=== PATIENT | male | born 1960 | race Caucasian/White ===

== ENCOUNTER → 2019-10-01 10:49 | Outpatient (BNVA) | payer OTHER, SELFPAY | PROVIDERS: PCP Nurse Practitioner; Visit Provider Internal Medicine Rheumatology | DX: Z79.899 Other long term (current) drug therapy (principal); L40.50 Arthropathic psoriasis, unspecified; Z11.59 Encounter for screening for other viral diseases | CPT/HCPCS: 80076; 82306; 82565; 84550; 85025; 85651; 86140; 86431; 86704; 86803; 87340 ==

== ENCOUNTER 2019-10-15 12:13 | Outpatient (CLI) | payer OTHER, SELFPAY ==
--- NOTE | 2019-10-15 12:18 | XR_ITS ---
WS: [id number] RIGHT FOOT: 3 VIEW(S) TECHNIQUE: AP, oblique and lateral. HISTORY: Psoriatic arthritis COMPARISON: None available. No acute fracture or dislocation. Normal tarsal/metatarsal alignment. No periostitis or edema. XR/XR foot RT min 3V* [id number] IMPRESSION: No evidence for psoriatic arthritis radiographically.
--- NOTE | 2019-10-15 12:18 | XR_ITS ---
WS: [id number] LEFT HAND: 3 VIEW(S) TECHNIQUE: PA, oblique and lateral. HISTORY: Psoriatic arthritis. COMPARISON: None available. Very mild narrowing of the interphalangeal joints. No edema or soft tissue swelling. Erosive changes involving the ulnar styloid with adjacent soft tissue edema. Additional early cortica l changes involving the first metacarpal head. XR/XR hand LT min 3V* [id number] IMPRESSION: 1. Erosive changes and edema at the ulnar styloid. This can be seen with rheum atoid arthritis or psoriatic arthritis. 2. No periostitis.
--- NOTE | 2019-10-15 12:18 | XR_ITS ---
WS: [id number] LEFT FOOT: 3 VIEW(S) TECHNIQUE: AP, oblique and lateral. HISTORY: Psoriatic arthritis. COMPARISON: None available. No acute fracture or dislocation. Normal tarsal/metatarsal alignment. No periostitis or significant soft tissue edema. No erosions. XR/XR foot LT min 3V* [id number] IMPRESSION: No evidence for psoriatic arthritis radiographically.
--- NOTE | 2019-10-15 12:18 | XR_ITS ---
WS: [id number] CHEST 2 VIEWS HISTORY: Psoriatic arthritis. COMPARISON: None available. Lungs: Clear with no abnormality. No pleural effusion or pneumothorax. Cardiac size: Normal. Mediastinum/Aorta: Normal mediastinum. Bones: Normal. XR/XR chest 2V* [id number] IMPRESSION: Normal chest.
--- NOTE | 2019-10-15 12:18 | XR_ITS ---
WS: [id number] RIGHT HAND: 3 VIEW(S) TECHNIQUE: PA, oblique and lateral. HISTORY: Psoriatic arthritis. COMPARISON: None available. Very minimal narrowing of the interphalangeal joints. No periostitis or erosions or telescoping of th e fingers. No subluxation. No soft tissue edema. XR/XR hand RT min 3V* [id number] IMPRESSION: Very mild interphalangeal joint space narrowing. Can be seen with early osteoar thritis or psoriatic arthritis.
== END 2019-10-15 12:14 | disposition home or self-care (01) ==
PROVIDERS: PCP Nurse Practitioner; Visit Provider Internal Medicine Rheumatology
DX: L40.50 Arthropathic psoriasis, unspecified (principal); R60.9 Edema, unspecified
CPT/HCPCS: 71046; 73130; 73630

== ENCOUNTER → 2020-03-10 09:40 | Outpatient (BNVA) | payer OTHER, SELFPAY | PROVIDERS: PCP Nurse Practitioner; Visit Provider Internal Medicine Rheumatology | DX: L40.50 Arthropathic psoriasis, unspecified (principal); Z71.89 Other specified counseling; Z79.899 Other long term (current) drug therapy | CPT/HCPCS: 80076; 82565; 85025; 85651; 86140; 86480 ==

== ENCOUNTER 2020-06-01 09:18 | Outpatient (CLI) | payer OTHER, SELFPAY ==
--- NOTE | 2020-06-01 09:23 | XR_ITS ---
WS: [id number] HAND LEFT TECHNIQUE: 3 views of the left hand CLINICAL INFORMATION: S60.559A - Superficial foreign body of unspecified hand, initial encounter COMPARISON: October 15, 2019 FINDINGS: Small calcifications second digit along the radial aspect of the mid phalanx. This is uncha nged since October 15, 2019. No visualized foreign bodies. Normal metacarpals. Normal MCP joint. Metacarpal heads are normal in appearance. Normal PIP and DIP j oints. No evidence of acute fracture or dislocation. Radiocarpal joint: Mild narrowing Carpal bones: Normal. XR/XR hand LT min 3V* [id number] IMPRESSION: 1. Small radiopaque fragments in the second digit soft tissues along the radia l aspect of the mid phalanx. This is unchanged since October 15, 2019 2. No visualized foreign bodies.
== END 2020-06-01 09:19 | disposition home or self-care (01) ==
LOC: RADWPI 09:22
PROVIDERS: PCP Nurse Practitioner; Visit Provider Nurse Practitioner Family
DX: S60.552A Superficial foreign body of left hand, initial encounter (principal); X58.XXXA Exposure to other specified factors, initial encounter
CPT/HCPCS: 73130

== ENCOUNTER → 2020-07-24 14:02 | Outpatient (BNVA) | payer OTHER, SELFPAY | PROVIDERS: PCP Nurse Practitioner; Visit Provider Internal Medicine Rheumatology | DX: L40.50 Arthropathic psoriasis, unspecified (principal); L40.9 Psoriasis, unspecified; Z79.899 Other long term (current) drug therapy; Z87.891 Personal history of nicotine dependence | CPT/HCPCS: 99214 ==

== ENCOUNTER → 2020-07-26 08:29 | Outpatient (BNVA) | payer OTHER, SELFPAY | PROVIDERS: PCP Nurse Practitioner; Visit Provider Internal Medicine Rheumatology | DX: L40.50 Arthropathic psoriasis, unspecified (principal); K21.9 Gastro-esophageal reflux disease without esophagitis; Z79.899 Other long term (current) drug therapy; Z71.89 Other specified counseling | CPT/HCPCS: 80076; 82565; 85025; 85651; 86140 ==

== ENCOUNTER → 2020-07-27 09:59 | Outpatient (BNVA) | payer OTHER, SELFPAY | PROVIDERS: PCP Nurse Practitioner; Visit Provider Nurse Practitioner Family | DX: R53.83 Other fatigue (principal); K21.9 Gastro-esophageal reflux disease without esophagitis; L98.9 Disorder of the skin and subcutaneous tissue, unspecified; Z12.11 Encounter for screening for malignant neoplasm of colon; Z13.6 Encounter for screening for cardiovascular disorders; Z12.5 Encounter for screening for malignant neoplasm of prostate | CPT/HCPCS: 80061; 82306; G0103 ==

== ENCOUNTER → 2021-03-20 09:57 | Outpatient (BNVA) | payer OTHER, SELFPAY | PROVIDERS: PCP Nurse Practitioner; Visit Provider Nurse Practitioner Family | DX: B35.1 Tinea unguium (principal) | CPT/HCPCS: 80053 ==

== ENCOUNTER → 2021-04-19 08:42 | Outpatient (BNVA) | payer OTHER, SELFPAY | PROVIDERS: PCP Nurse Practitioner; Visit Provider Internal Medicine Rheumatology | DX: L40.50 Arthropathic psoriasis, unspecified (principal); L40.9 Psoriasis, unspecified; Z79.899 Other long term (current) drug therapy; Z71.89 Other specified counseling | CPT/HCPCS: 99214 ==

== ENCOUNTER → 2021-04-27 10:11 | Outpatient (BNVA) | payer OTHER, SELFPAY | PROVIDERS: PCP Nurse Practitioner; Visit Provider Internal Medicine Rheumatology | DX: L40.50 Arthropathic psoriasis, unspecified (principal); Z79.899 Other long term (current) drug therapy | CPT/HCPCS: 80076; 82565; 85025; 86140 ==

== ENCOUNTER → 2022-04-08 09:22 | Outpatient (BNVA) | payer OTHER, SELFPAY | PROVIDERS: PCP Nurse Practitioner Family; Visit Provider Nurse Practitioner Family | DX: Z00.00 Encounter for general adult medical examination without abnormal findings (principal); Z13.6 Encounter for screening for cardiovascular disorders; L40.50 Arthropathic psoriasis, unspecified; Z79.899 Other long term (current) drug therapy; L40.9 Psoriasis, unspecified; Z71.3 Dietary counseling and surveillance; Z71.82 Exercise counseling; Z12.5 Encounter for screening for malignant neoplasm of prostate | CPT/HCPCS: 80061; 80076; 82565; 85025; 86140; G0103 ==

== ENCOUNTER → 2022-07-09 09:23 | Outpatient (BNVA) | payer OTHER, SELFPAY | PROVIDERS: PCP Nurse Practitioner Family; Visit Provider Nurse Practitioner Family | DX: Z79.899 Other long term (current) drug therapy (principal); L40.50 Arthropathic psoriasis, unspecified | CPT/HCPCS: 80076; 82565; 85025; 86140 ==

== ENCOUNTER → 2022-09-16 14:12 | Outpatient (BNVA) | payer OTHER, SELFPAY | PROVIDERS: PCP Nurse Practitioner Family; Visit Provider Nurse Practitioner Family | DX: M79.675 Pain in left toe(s) (principal); M20.60 Acquired deformities of toe(s), unspecified, unspecified foot | CPT/HCPCS: 73630 ==

== ENCOUNTER → 2022-10-04 08:00 | Outpatient (BNVA) | payer OTHER, SELFPAY | PROVIDERS: PCP Nurse Practitioner Family; Visit Provider Internal Medicine Rheumatology | DX: L40.50 Arthropathic psoriasis, unspecified (principal); Z79.899 Other long term (current) drug therapy; Z71.89 Other specified counseling | CPT/HCPCS: 80061; 80076; 82306; 82565; 85025; 86140 ==

== ENCOUNTER → 2023-05-08 09:02 | Outpatient (BNVA) | payer OTHER, SELFPAY | PROVIDERS: PCP Nurse Practitioner Family; Visit Provider Internal Medicine Rheumatology | DX: L40.50 Arthropathic psoriasis, unspecified (principal); Z79.899 Other long term (current) drug therapy | CPT/HCPCS: 80076; 82565; 85025; 86140 ==

== ENCOUNTER → 2023-07-23 08:42 | Outpatient (BNVA) | payer OTHER, SELFPAY | PROVIDERS: PCP Nurse Practitioner Family; Visit Provider Nurse Practitioner Family | DX: Z00.00 Encounter for general adult medical examination without abnormal findings (principal); Z13.6 Encounter for screening for cardiovascular disorders; Z12.5 Encounter for screening for malignant neoplasm of prostate; Z79.899 Other long term (current) drug therapy | CPT/HCPCS: 80053; 80061; 84443; 85025; G0103 ==

== ENCOUNTER 2023-09-10 10:55 | Outpatient (CLI) | payer OTHER, SELFPAY ==
[2023-09-12 12:55] LABS: Quantiferon Mitogen 7.98 IU/mL; Quantiferon Nil 0.02 IU/mL; Quantiferon Plus TB2 0.01 IU/mL; Quantiferon TB Gold NEGATIVE (NEGATIVE)
== END 2023-09-10 10:56 | disposition home or self-care (01) ==
LOC: LAB 10:58
PROVIDERS: PCP Nurse Practitioner Family; Visit Provider Nurse Practitioner Family
DX: L40.0 Psoriasis vulgaris (principal)
CPT/HCPCS: 36415; 86480

== ENCOUNTER → 2024-03-30 08:38 | Outpatient (BNVA) | payer OTHER, SELFPAY | PROVIDERS: PCP Nurse Practitioner Family; Visit Provider Internal Medicine Rheumatology | DX: Z79.899 Other long term (current) drug therapy (principal); L40.50 Arthropathic psoriasis, unspecified; L40.9 Psoriasis, unspecified | CPT/HCPCS: 80076; 82565; 85025; 86140 ==

== ENCOUNTER → 2024-04-22 12:31 | Outpatient (BNVA) | payer OTHER, SELFPAY | PROVIDERS: PCP Nurse Practitioner Family; Visit Provider Clinical Nurse Specialist Adult Health | DX: E55.9 Vitamin D deficiency, unspecified (principal); N40.0 Benign prostatic hyperplasia without lower urinary tract symptoms | CPT/HCPCS: 82306; 84153 ==

== ENCOUNTER → 2024-07-23 08:27 | Outpatient (BNVA) | payer OTHER, SELFPAY | PROVIDERS: PCP Clinical Nurse Specialist Adult Health; Visit Provider Clinical Nurse Specialist Adult Health | DX: N40.1 Benign prostatic hyperplasia with lower urinary tract symptoms (principal); R39.14 Feeling of incomplete bladder emptying; Z79.899 Other long term (current) drug therapy; L40.50 Arthropathic psoriasis, unspecified | CPT/HCPCS: 80053; 85025 ==

== ENCOUNTER → 2024-07-26 09:14 | Outpatient (BNVA) | payer MEDICARE, OTHER, SELFPAY | PROVIDERS: PCP Clinical Nurse Specialist Adult Health; Visit Provider Nurse Practitioner Family | DX: L57.0 Actinic keratosis (principal); L82.1 Other seborrheic keratosis; L81.4 Other melanin hyperpigmentation; L57.8 Other skin changes due to chronic exposure to nonionizing radiation; S50.912A Unspecified superficial injury of left forearm, initial encounter; L40.0 Psoriasis vulgaris; L40.59 Other psoriatic arthropathy; L82.0 Inflamed seborrheic keratosis; R58 Hemorrhage, not elsewhere classified; R20.8 Other disturbances of skin sensation; L29.89 Other pruritus; D48.5 Neoplasm of uncertain behavior of skin; X58.XXXA Exposure to other specified factors, initial encounter | CPT/HCPCS: 17110; 69100; 99214 ==

== ENCOUNTER → 2024-07-29 09:02 | Outpatient (BNVA) | payer MEDICARE, OTHER, SELFPAY | PROVIDERS: PCP Clinical Nurse Specialist Adult Health; Visit Provider Internal Medicine Rheumatology | DX: M25.561 Pain in right knee (principal); M25.562 Pain in left knee; L40.50 Arthropathic psoriasis, unspecified; L40.9 Psoriasis, unspecified; Z71.89 Other specified counseling; Z79.899 Other long term (current) drug therapy | CPT/HCPCS: 73562; 99214 ==

== ENCOUNTER → 2024-08-24 12:51 | Outpatient (BNVA) | payer MEDICARE, OTHER, SELFPAY | PROVIDERS: PCP Clinical Nurse Specialist Adult Health; Visit Provider Nurse Practitioner Family | DX: C44.219 Basal cell carcinoma of skin of left ear and external auricular canal (principal) | CPT/HCPCS: 99213 ==

== ENCOUNTER 2024-08-31 07:44 | Day surgery (SDC) | payer MEDICARE, OTHER, SELFPAY ==
[2024-08-31 07:58] VITALS: BP 159/91; PULSE 80; RESP 18; TEMP 36.1; O2SAT 95
[2024-08-31] MEDS: sodium chloride 0.9% 1,000 ML 30 ML IV (08:06)
--- NOTE | 2024-08-31 08:11 | ANES.PREANE2 ---
Pre-Anesthetic Assessment Height/Weight: Height 1.78 m Weight 86.183 kg Temp Pulse Resp BP Pulse Ox O2 Del Method 97.0 F L 80 18 159/91 95 Room Air 08/31/24 07:58 08/31/24 07:58 08/31/24 07:58 08/31/24 07:58 08/31/24 07:58 08/31/24 07:58 Preop Diagnosis: screening Operation Date: 08/31/24 09:00 Proposed Procedures p Colonoscopy 94756 G0121 Z12.11(Not Applicable) - Jose L Noel MD Familial anesthetic complications: none Was Beta Christine taken within 24 hours: N/A Was Clonidine taken within 24 hours: N/A Last intake: Intake Last Liquid Date 08/30/24 Last Liquid Time 20:00 Last Solid Date 08/29/24 Last Solid Time 18:00 Social No alcohol and No tobacco Exam alert, oriented x 3, clear to auscultation bilaterally and regular rate & rhythm Airway Submandibular: within normal limits Cervical ROM: within normal limits Mallampati: Class II Dentition: full History/ROS No significant history except as noted and No significant complaints Pulmonary None reported None reported Hepatic None reported GI Gastroesophageal Reflux Disease Metabolic None reported Musc/skel None reported Neuropsych None reported Anesthetic Plan ASA status: 2 Anesthesia: MAC Risk of > 500 ml blood loss (7ml/kg in children): No Medications/Allergies Home Medications ?Medication ?Instructions ?Recorded ?Confirmed ?Last Taken ?Type clobetasol 0.05 % topical cream 1 applic topical BID PRN psoriasis 12/15/20 08/26/24 08/31/24 Rx 2 weeks #30 grams fluorouracil 5 % topical cream 1 applic topical BID per 04/03/22 08/26/24 08/31/24 History (Efudex) manager distribution ammonium lactate 5 % lotion 1 applic topical DAILY PRN dry 04/23/22 08/26/24 08/31/24 Rx skin #226 grams clotrimazole-betamethasone 1 1 applic topical BID 4 weeks #15 07/24/23 08/26/24 08/31/24 Rx %-0.05 % topical cream grams acetaminophen 500 mg capsule 500 mg PO BID PRN Pain 04/01/24 08/26/24 08/31/24 History diclofenac sodium 1 % topical gel 2 g topical QID PRN Pain 04/01/24 08/26/24 08/31/24 History beta-sitosterol 125 mg-vit D3 10 1 tab PO BID 07/26/24 08/26/24 08/31/24 History vcm-fblqwcae-afcpdnbac 250 mg tablet (Prostate Max Plus) cholecalciferol (vitamin D3) 50 2,000 unit PO TID 07/26/24 08/26/24 08/31/24 History mcg (2,000 unit) tablet tamsulosin 0.4 mg capsule 0.4 mg PO DAILY 07/26/24 08/26/24 08/31/24 History famotidine [Acid Procedural Nurse 1 tab PO DAILY 07/29/24 08/26/24 08/31/24 History (famotidine)] melatonin 5 mg capsule 5 mg PO DAILY 07/29/24 08/26/24 08/31/24 History naproxen sodium 220 mg capsule 440 mg PO DAILY PRN Pain 07/29/24 08/26/24 08/31/24 History omega-3 fatty acids-fish oil 360 1 cap PO TID 07/29/24 08/26/24 08/31/24 History mg-1,200 mg capsule (Fish Oil) secukinumab 150 mg/mL subcutaneous 300 mg (2 mL) SUBCUT Q30D 30 days 08/24/24 08/26/24 08/31/24 Rx syringe (Cosentyx) #2 mL Allergies Allergy/AdvReac Type Severity Reaction Status Date / Time No Known Allergies Allergy Verified 08/26/24 09:35 Current Medications Generic Name Dose Route Start Last Admin Trade Name Freq PRN Reason Stop Dose Admin Sodium Chloride 1,000 mls @ 30 mls/hr 08/31/24 08:00 08/31/24 08:06 Sodium Chloride 0.9% IV 30 mls/hr .Q24H KIRSTY Administration PFSH Anesthesia Medical History BPH (benign prostatic hyperplasia) Vitamin D deficiency Basal cell carcinoma Fracture of third toe, left, closed High risk medication use Immunization counseling Psoriatic arthritis Psoriasis GERD (gastroesophageal reflux disease) Surgical History H/O Mohs micrographic surgery for skin cancer Family History Father Cancer prostate Other Acute rheumatic arthritis Hypertension Denies family history of Diabetes CAD (coronary artery disease) Chronic kidney disease (CKD) Systemic lupus erythematosus (SLE) in adult Family history of premature coronary artery disease Lung disease Stroke Social History Smoking and tobacco/nicotine status: never used tobacco/nicotine Second hand smoke exposure: Yes Alcohol intake: former Substance/Drug Use: never Lives independently: Yes Household members: spouse Housing: House Marital status: Data Anesthesia Cardiac Studies: No Data to Display
--- NOTE | 2024-08-31 08:43 | W.PM.OPSFHP ---
Same Day Surgery H&P Indication for Procedure/HPI DATE OF PROCEDURE: August 31, 2024 CHIEF COMPLAINT/INDICATIONFOR SURGICAL PROCEDURE: screening colonoscopy PREOP DIAGNOSIS: screening PLANNED PROCEDURE: Operation Date: 08/31/24 09:00 Proposed Procedures p Colonoscopy [id number] G0121 Z12.11(Not Applicable) - Jose L Noel MD Medications/Allergies* Home Medications ?Medication ?Instructions ?Recorded ?Confirmed ?Type fluorouracil 5 % topical cream 1 applic topical BID per 04/03/22 08/26/24 History (Efudex) cycling instructor acetaminophen 500 mg capsule 500 mg PO BID PRN Pain 04/01/24 08/26/24 History diclofenac sodium 1 % topical gel 2 g topical QID PRN Pain 04/01/24 08/26/24 History beta-sitosterol 125 mg-vit D3 10 1 tab PO BID 07/26/24 08/26/24 History nkf-ttwrhagt-ssrtahzeq 250 mg tablet (Prostate Max Plus) cholecalciferol (vitamin D3) 50 2,000 unit PO TID 07/26/24 08/26/24 History mcg (2,000 unit) tablet tamsulosin 0.4 mg capsule 0.4 mg PO DAILY 07/26/24 08/26/24 History famotidine [Acid Layout Designer 1 tab PO DAILY 07/29/24 08/26/24 History (famotidine)] melatonin 5 mg capsule 5 mg PO DAILY 07/29/24 08/26/24 History naproxen sodium 220 mg capsule 440 mg PO DAILY PRN Pain 07/29/24 08/26/24 History omega-3 fatty acids-fish oil 360 1 cap PO TID 07/29/24 08/26/24 History mg-1,200 mg capsule (Fish Oil) Allergies/Adverse Reactions Allergy/AdvReac Type Severity Reaction Status Date / Time No Known Allergies Allergy Verified 08/26/24 09:35 Current Medications: Generic Name Dose Route Start Last Admin Trade Name Freq PRN Reason Stop Dose Admin Sodium Chloride 1,000 mls @ 30 mls/hr 08/31/24 08:00 08/31/24 08:06 Sodium Chloride 0.9% IV 30 mls/hr .Q24H KIRSTY Administration Pertinent History/Comorbid Conditions* Medical History (Updated 04/22/24 @ 19:55 by Anil Adames NP) BPH (benign prostatic hyperplasia) Vitamin D deficiency Basal cell carcinoma Fracture of third toe, left, closed High risk medication use Immunization counseling Psoriatic arthritis Psoriasis GERD (gastroesophageal reflux disease) Surgical History (Updated 04/22/24 @ 11:54 by Anil Adames NP) H/O Mohs micrographic surgery for skin cancer Family History (Updated 09/29/19 @ 10:49 by Erin Lutz LPN) Acute rheumatic arthritis Cancer Father prostate Hypertension Denies family history of Diabetes CAD (coronary artery disease) Chronic kidney disease (CKD) Systemic lupus erythematosus (SLE) in adult Family history of premature coronary artery disease Lung disease Stroke Social History Smoking and tobacco/nicotine status: never used tobacco/nicotine Second hand smoke exposure: Yes Alcohol intake: former Substance/Drug Use: never Lives independently: Yes Household members: spouse Housing: House Marital status: Pertinent Exam Findings alert, oriented x 3, clear to auscultation bilaterally, regular rate & rhythm and procedure specific exam findings abdomen soft, nt, nd Pertinent Data Risks and benefits discussed Recommendations Surgery/Procedure today Coding Level of Care Code Acute Code for Chg Yanira
[2024-08-31 09:05] VITALS: BP 126/77; PULSE 59; TEMP 36.4; O2SAT 94
[2024-08-31 09:14] VITALS: BP 115/77; PULSE 60; RESP 18; TEMP 36.3; O2SAT 94
--- NOTE | 2024-08-31 09:35 | ANE.PACU2 ---
Inpatient post-anesthesia follow up: Airway intact: Yes Vital signs: Temperature 97.4 F Pulse Rate 60 Respiratory Rate 18 Blood Pressure 115/77 Pulse Oximetry 94 Oxygen Delivery Me thod Room Air Oxygen Flow Rate Fraction of Inspir ed Oxygen Hydration adequate: Yes Nausea and vomiting: No Pain level: 1 Mental status: Baseline
== END 2024-08-31 09:35 | disposition home or self-care (01) ==
PROVIDERS: PCP Clinical Nurse Specialist Adult Health; Visit Provider Student in an Organized Health Care Education/Training Program
PROC: 0DJD8ZZ Inspection of Lower Intestinal Tract, Via Natural or Artificial Opening Endoscopic (ICD-10-PCS; CPT 45378; principal; 2024-08-31 09:00)
DX: Z12.11 Encounter for screening for malignant neoplasm of colon (principal); K21.9 Gastro-esophageal reflux disease without esophagitis; L40.50 Arthropathic psoriasis, unspecified; Z79.899 Other long term (current) drug therapy; Z79.620 Long term (current) use of immunosuppressive biologic; Z85.828 Personal history of other malignant neoplasm of skin
CPT/HCPCS: G0121; J2704; J7030

== ENCOUNTER → 2024-09-15 09:46 | Outpatient (BNVA) | payer MEDICARE, OTHER, SELFPAY | PROVIDERS: PCP Clinical Nurse Specialist Adult Health; Visit Provider Nurse Practitioner Family | DX: L57.8 Other skin changes due to chronic exposure to nonionizing radiation (principal); X32.XXXA Exposure to sunlight, initial encounter; L81.4 Other melanin hyperpigmentation; Z08 Encounter for follow-up examination after completed treatment for malignant neoplasm; Z85.828 Personal history of other malignant neoplasm of skin | CPT/HCPCS: 99213 ==

== ENCOUNTER 2025-05-12 10:16 | Outpatient (CLI) | payer MEDICARE, OTHER, SELFPAY ==
[2025-05-12 10:43] LABS: Hematocrit 49.4 % (37-53); Hemoglobin 17.30 g/dL (11.27-16.99); Mean Corpuscular HGB Conc 35.0 g/dL (30-55); Mean Corpuscular Hemoglobin 32.4 pg (27-33); Mean Corpuscular Volume 92.5 fl (82-101); Nucleated Red Blood Cells % 0 %; Platelet Count 233 10^3/cmm (157-399); Red Blood Count 5.34 10^6/uL (3.85-5.65); White Blood Count 6.29 10^3/uL (3.29-11.43)
[2025-05-12 11:06] LABS: Alanine Aminotransferase 37 U/L (0-41); Albumin Level 4.3 g/dL (3.5-5.2); Alkaline Phosphatase 78 U/L (40-130); Aspartate Amino Transferase 26 U/L (0-40); Globulin 3.3 g/dL (1.3-4.6); Total Protein 7.6 g/dL (6.6-8.7)
[2025-05-12 11:22] LABS: Hepatitis B Surface Antigen Non-Reactive (Nonreactive)
== END 2025-05-12 10:17 | disposition home or self-care (01) ==
LOC: LAB 10:19
PROVIDERS: PCP Clinical Nurse Specialist Adult Health; Visit Provider Internal Medicine Rheumatology
DX: Z79.899 Other long term (current) drug therapy (principal)
CPT/HCPCS: 36415; 80076; 82565; 85025; 85651; 86140; 86480; 86704; 86803; 87340

== ENCOUNTER 2025-05-31 13:45 | Outpatient (CLI) | payer OTHER, SELFPAY ==
--- NOTE | 2025-05-31 13:51 | US_ITS ---
WS: [id number] TESTICULAR ULTRASOUND HISTORY: TESTICLE PAIN COMPARISON: None available. TECHNIQUE: Real-time and color Doppler imaging utilized to perform a testicular ultrasound. Right testicle: 3.4 cm x 2.8 cm x 2.2 cm. Normal size and echogenicity. No mass or torsion. Color Doppler is present throughout. Systolic and diastolic velocities are both present. Color Doppler is very slightly more prominent within the RIGHT testicle as compared to the LEFT. No significant hydrocele. Right epididymis: Diffusely enlarged epididymis. No increased vascularity within the epididymis. No mass identified. Left testicle: 3.5 cm x 2.6 cm x 1.9 cm. Normal size and echogenicity. No mass or torsion. Normal color Doppler is present throughout. Systolic and diastolic velocities are both present. No significant hydrocele. Left epididymis: Epididymis is enlarged without increased vascularity. Enlargement predominate in the mid body and tail. US/US scrotum [id number] IMPRESSION: 1. No testicular mass or torsion identified. 2. No hydrocele. 3. Bilateral enlarged epididymides. No increased vascularity. 4. Questionable mild increased vascularity within the RIGHT testicle compared to the LEFT. This is only noted on [id number] imaging of the testicles. Mild orchitis suspected.
== END 2025-05-31 13:46 | disposition home or self-care (01) ==
PROVIDERS: PCP Clinical Nurse Specialist Adult Health; Visit Provider Nurse Practitioner Family
DX: N50.819 Testicular pain, unspecified (principal)
CPT/HCPCS: 76870

== ENCOUNTER → 2025-06-02 14:14 | Outpatient (BNVA) | payer MEDICARE, OTHER, SELFPAY | PROVIDERS: PCP Clinical Nurse Specialist Adult Health; Visit Provider Internal Medicine Rheumatology | DX: L40.50 Arthropathic psoriasis, unspecified (principal); L40.9 Psoriasis, unspecified; Z79.899 Other long term (current) drug therapy; Z71.85 Encounter for immunization safety counseling | CPT/HCPCS: 99214 ==